=== PATIENT | female | born 1990 | race Caucasian/White ===

== ENCOUNTER 2018-11-30 11:30 | Inpatient (IN) ==
[2018-11-30] MEDS ORDERED: PHENOBARBITAL IV PRN (12:12)
[2018-11-30] MEDS ORDERED: ATARAX PO PRN (12:12)
[2018-11-30] MEDS ORDERED: MAALOX PLUS LIQUID PO PRN (12:12)
[2018-11-30] MEDS ORDERED: DULCOLAX PR PRN (12:12)
[2018-11-30] MEDS ORDERED: IMODIUM PO PRN (12:12)
[2018-11-30] MEDS ORDERED: BENTYL PO PRN (12:12)
[2018-11-30] MEDS ORDERED: D5W 1,000 ML IV PRN (12:12)
[2018-11-30] MEDS ORDERED: LIBRIUM PO PRN (12:12)
[2018-11-30] MEDS ORDERED: TUBERSOL ID ONE (12:12)
[2018-11-30] MEDS ORDERED: SENOKOT PO PRN (12:12)
[2018-11-30] MEDS ORDERED: ZOFRAN ODT PO PRN (12:12)
[2018-11-30] MEDS ORDERED: MOTRIN PO PRN (12:12)
[2018-11-30] MEDS ORDERED: DESYREL PO PRN (12:12)
[2018-11-30] MEDS ORDERED: SINEMET 25/100 PO PRN (12:12)
[2018-11-30] MEDS ORDERED: ZOFRAN IV PRN (12:12)
[2018-11-30 13:15] LABS: HEMATOCRIT 41.1 % (37.0-47.0); HEMOGLOBIN 13.7 g/dL (12.0-16.0); MCH 30.1 PG (27-31); MCHC 33.3 g/dL (33-37); MCV 90.3 FL (81-99); MPV 10.7 FL (7.4-10.4); RBC 4.55 XMIL (4.2-5.4); RDW 12.1 % (11.5-14.5); WBC 6.26 X1000 (4.8-10.8)
[2018-11-30] MEDS: NICODERM PATCH TD PRN (13:22)
[2018-11-30 13:30] LABS: UR AMPHETAMINES QUAL NONE DETECTED (NONE DETECT); UR BARBITUATES QUAL NONE DETECTED (NONE DETECT); UR BENZODIAZEPIN QUAL NONE DETECTED (NONE DETECT); UR CANNABINOIDS QUAL NONE DETECTED (NONE DETECT); UR COCAINE QUAL NONE DETECTED (NONE DETECT); UR METHADONE QUAL NONE DETECTED (NONE DETECT); UR METHAMPHETAMINE QUAL NONE DETECTED (NONE DETECT); UR OPIATES QUAL PRESUMPTIVE POSITIVE (NONE DETECT); UR OXYCODONE QUAL NONE DETECTED (NONE DETECT); UR PCP QUAL NONE DETECTED (NONE DETECT); UR PROPOXYPHENE QUAL NONE DETECTED (NONE DETECT); UR TCA QUAL NONE DETECTED (NONE DETECT)
[2018-11-30 13:31] LABS: AMYLASE 71 U/L (20-200); LIPASE 19 U/L (13-60)
[2018-11-30 13:32] LABS: AGAP 14; ALBUMIN 4.3 g/dL (3.5-5.0); ALKALINE PHOSPHATASE 66 U/L (32-104); BUN 11 mg/dL (8-22); CALCIUM 9.6 mg/dL (8.8-10.2); CHLORIDE 101 mmol/L (98-107); COSMO 275; CREATININE 0.7 mg/dL (0.5-0.9); ESTIMATED GFR > 60; GLUCOSE 100 mg/dL (70-104); GOT 41 U/L (10-30); GPT 41 U/L (10-36); POTASSIUM 3.3 mmol/L (3.5-5.1); SODIUM 138 mmol/L (136-145); TCO2 23 mmol/L (25-35)
[2018-11-30 13:35] LABS: INR 1.03
[2018-11-30 14:50] LABS: URINE SOURCE CLEAN CATCH
[2018-11-30 15:02] LABS: BILIRUBIN URINE NEGATIVE (NEGATIVE); BLOOD URINE 3+ (NEGATIVE); COLOR AMBER; GLUCOSE URINE NEGATIVE (NEGATIVE); KETONE URINE TRACE mg/dL (NEGATIVE); LEUKOCYTES URINE 2+ (NEGATIVE); NITRITE URINE POSITIVE (NEGATIVE); PROTEIN URINE 1+(30 mg/dL) mg/dL (NEGATIVE); UROBILINOGEN URINE NORMAL
[2018-11-30 15:06] LABS: CLARITY CLOUDY (CLEAR)
[2018-11-30 15:07] LABS: URINE WBC TNTC /HPF (<10)
[2018-11-30 15:08] LABS: URINE BACTERIA 4+ /HFP; URINE CAST NONE SEEN /LPF; URINE CRYSTAL NONE SEEN /HPF; URINE EPITHELIAL CELLS >10 /HPF (<10); URINE RBC TNTC /HPF (<10); URINE YEAST NONE SEEN /HPF
[2018-11-30] MEDS: SUBOXONE 2 MG/0.5 MG FILM SL SCH (16:15)
[2018-11-30] MEDS: TYLENOL PO PRN ×2 (16:15→20:37)
[2018-11-30] MEDS ORDERED: KLOR-CON PO ONE (19:10)
[2018-11-30] MEDS: ROBAXIN PO PRN (20:37)
[2018-11-30] MEDS: ROCEPHIN 1 GM in NS 50 ML IV SCH (20:37)
[2018-11-30] MEDS: SEROQUEL PO PRN (20:39)
--- NOTE | 2018-12-01 00:22 | HISTORY AND PHYSICAL ---
CHIEF COMPLAINT: Nausea and vomiting. HISTORY OF PRESENT ILLNESS: The patient is a 28-year-old female who notes that she has been on Suboxone in the past. She has been on 2-1/2 strips a day. However, she was having to come every 2 weeks. She missed an appointment, was forced to come every week. Notes that she missed one of those days, and was therefore dismissed. SOCIAL HISTORY: Patient is , unemployed, lives at home in [place]. PAST MEDICAL HISTORY: Significant for hepatitis C, frequent urinary infections, depression, anxiety, frequent dehydration, anxiety, depression. MEDICATIONS: Lamictal ER 200 q.a.m., mirtazapine 45 at bedtime, Suboxone 8/2 mg 2-1/2 strips a day. ALLERGIES: No known drug allergies. REVIEW OF SYSTEMS: CINA score is 8, secondary to abdominal pain, cramping, nausea, vomiting, frequent changes in temperature, paroxysmal sweating, chronic anxiety, muscle aches. Denies any dysuria, urinary frequency, urgency, hesitancy. Denies polyuria, polydipsia. Denies any skin rashes, weight loss, or weight gain. SUBSTANCE ABUSE HISTORY: The patient was in 30-day treatment in 2007. PHYSICAL EXAMINATION: VITAL SIGNS: Reviewed and stable. Patient is awake, alert, oriented. Currently, in no respiratory distress. HEENT: Normocephalic. NECK: Supple. CARDIOVASCULAR: Regular rate. CHEST: Clear. ABDOMEN: Soft. EXTREMITIES: Moves all extremities. NEUROLOGIC: No focal neurological changes. ASSESSMENT: 1. Nausea and vomiting. 2. Abdominal pain. 3. Myalgias. 4. Paresthesias. 5. Opiate abuse, withdrawal, and admit for stabilization. 6. Chronic tobacco abuse. PLAN: We will admit patient to the hospital, place her on Suboxone, treat her symptoms, and will follow. cc: Angus Stanley MD
[2018-12-01] MEDS: SUBOXONE 2 MG/0.5 MG FILM SL SCH (04:41)
[2018-12-01] MEDS: PROTONIX PO SCH ×2 (04:42→06:24)
[2018-12-01] MEDS: SUBOXONE 8 MG/2 MG FILM SL SCH ×2 (08:58→20:18)
[2018-12-01] MEDS: ROBAXIN PO PRN ×2 (08:58→23:23)
[2018-12-01] MEDS: THERA M PLUS PO SCH (08:58)
[2018-12-01] MEDS: FOLIC ACID PO SCH (08:58)
[2018-12-01] MEDS: VITAMIN B-1 PO SCH (08:58)
[2018-12-01] MEDS: NICODERM PATCH TD PRN (15:01)
[2018-12-01] MEDS ORDERED: LAMICTAL XR PO SCH (16:00)
[2018-12-01] MEDS: ROCEPHIN 1 GM in NS 50 ML IV SCH (19:34)
[2018-12-01] MEDS: TYLENOL PO PRN (19:34)
[2018-12-01] MEDS ORDERED: REMERON PO SCH (21:00)
[2018-12-01] MEDS: SEROQUEL PO PRN (23:22)
--- NOTE | 2018-12-02 00:12 | PROGRESS NOTE ---
DATE: 12/01/2018 SUBJECTIVE: Patient notes she still does not feel well, did not sleep well last night. Still having muscle aches and myalgias. Denies any tremors. Denies any fevers or chills. Denies any diarrhea, constipation, or melena. PHYSICAL EXAMINATION: Vital Signs: Reviewed. Temperature 97.6 degrees, pulse 99, respiratory 16, BP 99/59. General: Patient is awake, alert. Currently she is in no respiratory distress. Pleasant to talk with. HEENT: Normocephalic. Neck: Supple. CARDIOVASCULAR: Regular rate. No murmurs. Chest: Clear, nonlabored. Abdomen: Soft, nondistended, nontender. Extremities: Moves all extremities. Neurologic: No changes. ASSESSMENT: 1. Gram-negative mitchell urinary tract infection. 2. Opiate abuse, withdrawal, and stabilization. 3. Nausea and vomiting. 4. Abdominal pain. 5. Frequent urinary tract infection. 6. Chronic anxiety and depression. 7. Others. PLAN: We will continue patient in the hospital. Continue counseling. We will increase her Suboxone to 8/2. Hopefully, this will alleviate her symptoms. Continue antibiotics until culture returns. Hopefully, she can discharge home over the next day or 2. cc: Angus Stanley MD
[2018-12-02] MEDS: PROTONIX PO SCH (06:24)
[2018-12-02 08:04] VITALS: BP 112/75
[2018-12-02] MEDS: FOLIC ACID PO SCH (09:26)
[2018-12-02] MEDS: VITAMIN B-1 PO SCH (09:26)
[2018-12-02] MEDS: SUBOXONE 8 MG/2 MG FILM SL SCH (09:26)
[2018-12-02] MEDS: THERA M PLUS PO SCH (09:26)
--- NOTE | 2018-12-03 02:46 | DISCHARGE SUMMARY ---
ADMISSION DATE: 11/30/2018 DISCHARGE DATE: 12/02/2018 DISCHARGE DIAGNOSIS: 1. Nausea, vomiting. 2. Abdominal pain. 3. Myalgias. 4. Paresthesias. 5. Opiate withdrawal. CONSULTATIONS: None. PROCEDURES: None. BRIEF HOSPITAL COURSE: Patient is a 28-year-old female who unfortunately has been using and abusing opiates. She presented to the hospital, treated in usual fashion, placed on [facility] program. Thankfully, overall she continued to improve. She had an uneventful hospital course. DISPOSITION: Patient will be discharged home. Discussed with her the importance of avoiding all persons, places and situations in which she has been using and abusing in the past. Discussed with her that she needs to avoid all situations that she has been tempted to use. She needs outpatient life counseling as well as drug counseling. We did discharge her on Suboxone 05/14 twice a day. Discussed that she does not need to go back up to the 3 a day that she had been on in the past. cc: Angus Stanley MD
== END 2018-12-02 11:13 | disposition home or self-care (01) | DRG 897 ==
LOC: P.DIRADM 11:30 → P.MEDSURG 11:47
PROVIDERS: ADMIT Family Medicine; ATTEND Family Medicine
CPT/HCPCS: 80053; 80104; 80301; 80305; 80307; 80320; 81001; 82055; 82150; 83690; 84703; 85027; 85610; 87077; 87088; 87186; A9270; G0431; G0434; G0477; G0480; G6040; J0696